=== PATIENT | female | born 1990 | race Two or more races ===

== ENCOUNTER 2017-01-09 13:22 | Emergency (ER) | payer OTHER ==
[2017-01-09 13:35] VITALS: BP 101/72; PULSE 85; TEMP 98; BMI 23.0
[2017-01-09] MEDS ORDERED: IBUPROFEN 400 MG TABLET (FP) PO ONE ×2 (14:27→14:56)
--- NOTE | 2017-01-09 14:30 | PDOC ---
History of Present Illness - General Chief Complaint: Pain Stated Complaint: RT FOOT PAIN, BACK PAIN Time Seen by Provider: 01/09/17 13:45 History Source: Patient - History of Present Illness Occurred: reports: other Pain Location: reports: back, lower extremity Method of Injury: Yes: fall Past History - Past Medical History Allergies/Adverse Reactions: Allergies Allergy/AdvReac Type Severity Reaction Status Date / Time No Known Allergies Allergy Verified 01/09/17 13:35 Home Medications: Ambulatory Orders Oxycodone HCl/Acetaminophen [Percocet 5/325 -] 1 - 2 tab PO Q4H #20 tablet 06/08 Penicillin V Potassium [Pen Vee K -] 500 mg PO QID #40 tablet 06/08/15 - Psycho/Social/Smoking Cessation Hx Suicidal Ideation: No Smoking History: Never smoked Information on smoking cessation initiated: No Review of Systems - Review of Systems Musculoskeletal: Yes: Back Pain, Joint Pain, Joint Swelling. No: Neck Pain Integumentary: No: Bruising *Physical Exam - Vital Signs Last Vital Signs Temp Pulse Resp BP Pulse Ox 98 F 85 18 101/72 100 01/09/17 13:32 01/09/17 13:32 01/09/17 13:32 01/09/17 13:32 01/09/17 13:32 - Physical Exam General Appearance: Yes: Appropriately Dressed. No: Apparent Distress HEENT: positive: Normal Voice Neck: positive: Supple Respiratory/Chest: negative: Respiratory Distress Musculoskeletal: positive: Normal Inspection, Vertebral Tenderness (minimal ttp to L mid back) Extremity: positive: Swelling (minimal swelling to lateral mal of R ankle) Integumentary: positive: Dry, Warm Neurologic: positive: Fully Oriented, Alert, Normal Mood/Affect ED Treatment Course - RADIOLOGY Radiology Studies Ordered: Category Date Time Status ANKLE & FOOT-RIGHT* [RAD] Stat Radiology 01/09/17 14:26 Ordered RIBS BILATERAL [RAD] Stat Radiology 01/09/17 14:26 Ordered Medical Decision Making - Medical Decision Making 01/09/17 14:27 26-year-old female, no significant history here with multiple injuries status post fall 5 days ago. States [place] the [place], she tripped and fell injuring her right foot and ankle and left mid back. States she has been able to ambulate but painful. Did not take anything for pain. Denies any other injuries at this time See exam M/l ankle/back sprain s/p fall 5 days ago -pain control in ED -XR 01/09/17 15:42 XRays neg for fx. Stable for dc w/ OBDULIA bandage and otc meds as needed for pain *DC/Admit/Observation/Transfer Diagnosis at time of Disposition: Ankle sprain Qualifiers: Encounter type: initial encounter Involved ligament of ankle: unspecified ligament Laterality: right Qualified Code(s): S93.401A - Sprain of unspecified ligament of right ankle, initial encounter - Discharge Dispostion Disposition: HOME Condition at time of disposition: Good - Patient Instructions Printed Discharge Instructions: Ankle Sprain Additional Instructions: Your xrays are normal. Please take motrin as needed for pain until symptoms resolve
== END 2017-01-09 16:21 | disposition home or self-care (01) ==
LOC: JERFT 13:22
DX: S93.401A Sprain of unspecified ligament of right ankle, initial encounter (principal); S23.3XXA Sprain of ligaments of thoracic spine, initial encounter; W18.39XA Other fall on same level, initial encounter; Y93.89 Activity, other specified; Y92.59 Other trade areas as the place of occurrence of the external cause; Y99.0 Civilian activity done for income or pay
CPT/HCPCS: 71111-TC; 73610-TC-RT; 73630-TC-RT; 84703; 99281-25

== ENCOUNTER 2017-08-11 23:43 | Emergency (ER) | payer OTHER ==
--- NOTE | 2017-08-12 00:49 | PDOC ---
History of Present Illness - General History Source: Patient Exam Limitations: No Limitations - History of Present Illness Initial Comments: 08/12/17 01:59 The patient is a 27 year old female, with no significant past medical history, who presents to the emergency department s/p mechanical fall. The patient reports falling when sleeping and hit her face on the floor and her bedside table. She reports the right side of her face to be swollen and painful. She denies recent fevers, chills, headache or dizziness. She denies recent nausea, vomit, diarrhea or constipation. She denies recent dysuria, frequency, urgency or hematuria. She denies recent chest pain or shortness of breath. Allergies: NKA Past surgical history: None reported. Social history: Nonsmoker. Denies EtOH use and recreational drug use. <Jerome Quarles - Last Filed: 08/12/17 02:01> <Bridget Hernández - Last Filed: 08/12/17 05:12> - General Chief Complaint: Injury Stated Complaint: FALL INJURY Time Seen by Provider: 08/12/17 00:48 Past History <Jerome Quarles - Last Filed: 08/12/17 02:01> - Suicide/Smoking/Psychosocial Hx Smoking History: Never smoked <Bridget Hernández - Last Filed: 08/12/17 05:12> - Past Medical History Allergies/Adverse Reactions: Allergies Allergy/AdvReac Type Severity Reaction Status Date / Time No Known Allergies Allergy Verified 08/12/17 00:49 Home Medications: Ambulatory Orders NK [No Known Home Medication] 08/12/17 Review of Systems - Review of Systems Able to Perform ROS?: Yes Comments:: 08/12/17 02:00 GENERAL/CONSTITUTIONAL: No fever or chills. No weakness. HEAD, EYES, EARS, NOSE AND THROAT: +Swelling to the right side of the face. No change in vision. No ear pain or discharge. No sore throat. CARDIOVASCULAR: No chest pain or shortness of breath. RESPIRATORY: No cough, wheezing, or hemoptysis. GASTROINTESTINAL: No nausea, vomiting, diarrhea or constipation. GENITOURINARY: No dysuria, frequency, or change in urination. MUSCULOSKELETAL: No joint or muscle swelling or pain. No neck or back pain. SKIN: No rash NEUROLOGIC: No headache, vertigo, loss of consciousness, or change in strength/ sensation. ENDOCRINE: No increased thirst. No abnormal weight change. HEMATOLOGIC/LYMPHATIC: No anemia, easy bleeding, or history of blood clots. ALLERGIC/IMMUNOLOGIC: No hives or skin allergy. All Other Systems: Reviewed and Negative <Jerome Quarles - Last Filed: 08/12/17 02:01> *Physical Exam - Vital Signs Last Vital Signs Temp Pulse Resp BP Pulse Ox 98.3 F 89 18 116/68 08/12/17 00:44 08/12/17 00:44 08/12/17 00:44 08/12/17 00:44 - Physical Exam Comments: 08/12/17 02:00 GENERAL: Awake, alert, and fully oriented, in no acute distress HEAD: No signs of trauma EYES: PERRLA, EOMI, sclera anicteric, conjunctiva clear ENT: Auricles normal inspection, hearing grossly normal, nares patent, oropharynx clear without exudates. Moist mucosa NECK: Normal ROM, supple, no lymphadenopathy, JVD, or masses LUNGS: Breath sounds equal, clear to auscultation bilaterally. No wheezes, and no crackles HEART: +Tachycardia. Regular rate, normal S1 and S2, no murmurs, rubs or gallops ABDOMEN: +Mildly tender to palpation in the epigastric region. Soft, normoactive bowel sounds. No guarding, no rebound. No masses EXTREMITIES: 2+ Distal pulses. Normal range of motion, no edema. No clubbing or cyanosis. No cords, erythema, or tenderness NEUROLOGICAL: +Reflexes 3/4 Brachioradialis and patellar. Cranial nerves II through XII grossly intact. Normal speech, normal gait SKIN: Warm, Dry, normal turgor, no rashes or lesions noted. <Jerome Quarles - Last Filed: 08/12/17 02:01> ED Treatment Course - LABORATORY CBC & Chemistry Diagram: 08/12/17 01:50 08/12/17 01:50 - ADDITIONAL ORDERS Additional order review: Laboratory Results 08/12/17 01:50 Sodium Cancelled Potassium Cancelled Chloride Cancelled Carbon Dioxide Cancelled Anion Gap Cancelled BUN Cancelled Creatinine Cancelled Creat Clearance w eGFR Cancelled Random Glucose Cancelled Calcium Cancelled Total Bilirubin Cancelled AST Cancelled ALT Cancelled Alkaline Phosphatase Cancelled Total Protein Cancelled Albumin Cancelled <Jerome Quarles - Last Filed: 08/12/17 02:01> - LABORATORY CBC & Chemistry Diagram: 08/12/17 01:50 08/12/17 01:50 <Bridget Hernández - Last Filed: 08/12/17 05:12> Medical Decision Making - Medical Decision Making 08/12/17 05:11 THIS IS A PRELIMINARY REPORT FROM [facility] DATE OF SERVICE: 2017-08-12 04:11:26 IMAGES: [id number] EXAM: CT MAXILLOFACIAL without contrast HISTORY: Fell out of bed COMPARISON: None. FINDINGS: Serial axial images of the facial bones are provided without priors. Coronal and sagittal reformats are provided. No contrast was given. The mandible is intact. The zygomatic arches are unremarkable. No orbital fracture is demonstrated. The nasal bone is intact. The medial and lateral pterygoid plates are intact. The bilateral osteomeatal complexes are patent. The bilateral orbital globes, extraocular muscles, and optic nerves are intact. The paranasal sinuses are without air-fluid level. Minimal mucosal thickening seen scattered in the sinuses.. The bilateral mastoid air cells are clear. IMPRESSION: NO ACUTE ABNORMALITY <Bridget Hernández - Last Filed: 08/12/17 05:12> *DC/Admit/Observation/Transfer - Attestations Scribe Attestion: 08/12/17 02:00 Documentation prepared by Jerome Quarles, acting as clinical medical assistant for Bridegt Hernández MD. <Jerome Quarles - Last Filed: 08/12/17 02:01> - Discharge Dispostion Admit: No <Bridget Hernández - Last Filed: 08/12/17 05:12> Diagnosis at time of Disposition: Facial injury, Fall - Discharge Dispostion Disposition: HOME Condition at time of disposition: Improved - Referrals Referrals: ON STAFF,NOT [Non Staff, Medical] - - Patient Instructions Printed Discharge Instructions: DI for Closed Head Injury - Post Discharge Activity
[2017-08-12 01:02] VITALS: BP 116/68; PULSE 89; TEMP 98.3; BMI 21.2
[2017-08-12 01:55] LABS: BASO % 0.4 % (0-2.0); EOS % 0.2 % (0-4.5); HEMATOCRIT 38.5 % (32.4-45.2); HEMOGLOBIN 12.7 GM/dL (10.7-15.3); LYMPH % 16.1 % (8-40); MCH 27.2 pg (25.7-33.7); MCHC 33.1 g/dl (32.0-36.0); MEAN CELL VOLUME 82.2 fl (80-96); MEAN PLT VOLUME 7.9 fl (7.5-11.1); MONO % 5.5 % (3.8-10.2); NEUT % 77.8 % (42.8-82.8); PLATELET COUNT 226 K/MM3 (134-434); RBC 4.68 M/mm3 (3.60-5.2); RDW 13.5 % (11.6-15.6); WHITE BLOOD COUNT 9.5 K/mm3 (4.0-10.0)
[2017-08-12 02:17] LABS: COCAINE, UR NEGATIVE ng/ml (CUTOFF=300); METHADONE, UR NEGATIVE ng/ml (CUTOFF=300); OPIATES, URI NEGATIVE ng/ml (CUTOFF=300); PHENCYCLIDINE,URINE NEGATIVE ng/ml (CUTOFF=25); URINE AMPHETAMINES NEGATIVE ng/ml (CUTOFF=500); URINE BARBITURATES NEGATIVE ng/ml (CUTOFF=200); URINE BENZODIAZEPINES NEGATIVE ng/ml (CUTOFF=200)
[2017-08-12 02:23] LABS: ALBUMIN 4.2 g/dl (3.4-5.0); ANION GAP 8 (8-16); BILIRUBIN,TOTAL 0.4 mg/dL (0.2-1.0); BLOOD UREA NITROGEN 12 mg/dL (7-18); CHLORIDE 107 mmol/L (98-107); CO2 27 mmol/L (21-32); CREATININE 0.7 mg/dL (0.55-1.02); GLUCOSE,RANDOM 98 mg/dL (74-106); POTASSIUM 3.8 mmol/L (3.5-5.1); SGOT/AST 16 U/L (15-37); SGPT/ALT 18 U/L (12-78); SODIUM 142 mmol/L (136-145); TOT PROT 7.8 g/dl (6.4-8.2)
[2017-08-12 02:24] LABS: ALK PHOS 73 U/L (45-117)
--- NOTE | 2017-08-12 12:10 | EKG ---
Test Reason : Blood Pressure : / mmHG Vent. Rate : 080 BPM Atrial Rate : 080 BPM P-R Int : 170 ms QRS Dur : 076 ms QT Int : 398 ms P-R-T Axes : 059 077 067 degrees QTc Int : 459 ms NORMAL SINUS RHYTHM NORMAL ECG NO PREVIOUS ECGS AVAILABLE Confirmed by MD JOSE LUIS, AYLEEN ([id number]) on 08/12/2017 12:09:32 PM Referred By: Confirmed By:AYLEEN AMAYA MD
== END 2017-08-12 05:20 | disposition home or self-care (01) ==
LOC: JER 23:43 → SUPCPDRO 23:43 → JER 08-12 05:20
DX: S09.8XXA Other specified injuries of head, initial encounter (principal); W06.XXXA Fall from bed, initial encounter; Y93.84 Activity, sleeping; Y92.032 Bedroom in apartment as the place of occurrence of the external cause; Y99.8 Other external cause status
CPT/HCPCS: 36415; 70450-TC; 70486-TC; 80053; 80307; 84436; 84443; 84479; 84703; 85025; 93005; 93010; 99282-25

== ENCOUNTER 2017-08-15 13:07 | Emergency (ER) | payer OTHER ==
[2017-08-15 13:37] VITALS: BP 110/77; PULSE 77; TEMP 98.1; BMI 20.9
[2017-08-15] MEDS ORDERED: KETOROLAC TROMETHAMINE 60 MG/2 ML VIAL IM ONE (14:58)
[2017-08-15] MEDS ORDERED: KETOROLAC TROMETHAMINE 60 MG/2 ML VIAL ONE (15:00)
--- NOTE | 2017-08-15 15:08 | PDOC ---
History of Present Illness - General Chief Complaint: Headache Stated Complaint: NECK PROBLEM, HEADACHE Time Seen by Provider: 08/15/17 14:47 History Source: Patient Exam Limitations: No Limitations - History of Present Illness Initial Comments: 08/15/17 15:00 27 yr female no medical history seen in ER 08/11/17 for falling out of her bed while sleeping hit head and face. Pt had no LOC negative cat scans. Pt returns to day c/o soreness to the back and her head, neg dizzyness neg vomiting. Pt has not taken and meds for pain since ER visit. Pt denies changes in vision, neg abdpain. Severity: Yes: moderate Past History - Past Medical History Allergies/Adverse Reactions: Allergies Allergy/AdvReac Type Severity Reaction Status Date / Time No Known Allergies Allergy Verified 08/15/17 13:34 Home Medications: Ambulatory Orders Cyclobenzaprine HCl [Flexeril -] 10 mg PO TID PRN #21 tablet 08/15/17 Naproxen [Naprosyn -] 500 mg PO BID PRN #14 tablet 08/15/17 COPD: No DVT: No - Immunization History Immunization Up to Date: Yes - Suicide/Smoking/Psychosocial Hx Smoking History: Never smoked Have you smoked in the past 12 months: No Information on smoking cessation initiated: No Hx Alcohol Use: No Drug/Substance Use Hx: No Substance Use Type: None Neuro Specific PMHX - Complaint Specific PMHX Glaucoma: No Herniated Disk: No Laminectomy: No Migraine: No Multiple Sclerosis: No Neuropathy: No TIA: No Review of Systems - Review of Systems Able to Perform ROS?: Yes Is the patient limited Niuean proficient: No Constitutional: No: Symptoms Reported HEENTM: No: Symptoms Reported Respiratory: No: Symptoms reported Cardiac (ROS): No: Symptoms Reported ABD/GI: No: Symptoms Reported : No: Symptoms Reported Musculoskeletal: Yes: Symptoms Reported Neurological: Yes: Symptoms reported, Headache *Physical Exam - Vital Signs Last Vital Signs Temp Pulse Resp BP Pulse Ox 98.1 F 77 16 110/77 100 08/15/17 13:34 08/15/17 13:34 08/15/17 13:34 08/15/17 13:34 08/15/17 13:34 - Physical Exam General Appearance: Yes: Nourished, Appropriately Dressed HEENT: positive: EOMI, JOSE, Pharynx Normal Neck: positive: Supple. negative: Tender Respiratory/Chest: positive: Lungs Clear, Normal Breath Sounds Cardiovascular: positive: Regular Rhythm, Regular Rate Gastrointestinal/Abdominal: positive: Normal Bowel Sounds, Soft Musculoskeletal: positive: Normal Inspection, Other (lumbar spine soft tissue paraspinal ttp , lateral neck with soft tissue ttp no midline tenderness). negative: Vertebral Tenderness Extremity: positive: Normal Capillary Refill, Normal Inspection, Normal Range of Motion Integumentary: positive: Normal Color, Dry, Warm Neurologic: positive: grocery store associate II-XII NML intact, Fully Oriented, Alert, Normal Mood/ Affect Medical Decision Making - Medical Decision Making 08/15/17 15:03 cc: headache soreness to low back, pain to her nose after she was sleeping and rolled out of her bed hitting face on night table on 08/11/17. pt had no LOC was seen in this ER negative head and facial ct scan pt has no dizzyness no changes in vision or vomiting no vetebral tenderness no midline vetebral tenderness will give toradol dc home with flexeril and naprosyn *DC/Admit/Observation/Transfer Diagnosis at time of Disposition: Muscle soreness Headache Qualifiers: Headache type: post-traumatic Headache chronicity pattern: acute headache Intractability: not intractable Qualified Code(s): G44.319 - Acute post- traumatic headache, not intractable - Discharge Dispostion Disposition: HOME Condition at time of disposition: Good - Prescriptions Prescriptions: Cyclobenzaprine HCl [Flexeril -] 10 mg PO TID PRN #21 tablet PRN Reason: Muscle Spasms Naproxen [Naprosyn -] 500 mg PO BID PRN #14 tablet PRN Reason: Pain - Referrals Referrals: Peggy Sim MD [Primary Care Provider] - - Patient Instructions Additional Instructions: drink at least 2 liters of water avoid texting reading or watching TV when you have headache or pain take the medication as prescribed follow with the neurologist Dr. Davey for follow up if headaches continue return to ER if symptoms have not improved after taking the prescribed medication - Post Discharge Activity
== END 2017-08-15 15:43 | disposition home or self-care (01) ==
LOC: JERFT 13:07
PROC: 3E0233Z Introduction of Anti-inflammatory into Muscle, Percutaneous Approach (ICD-10-PCS; principal; 2017-08-15)
DX: G44.319 Acute post-traumatic headache, not intractable (principal); M54.5 Low back pain; M79.1 Myalgia; W06.XXXD Fall from bed, subsequent encounter
CPT/HCPCS: 96372; 99281-25

== ENCOUNTER 2017-12-12 14:48 | Emergency (ER) | payer OTHER ==
[2017-12-12 14:53] VITALS: BMI 22.1
--- NOTE | 2017-12-12 14:55 | PDOC ---
Rapid Medical Evaluation Time Seen by Provider: 12/12/17 14:49 Medical Evaluation: Allergies Allergy/AdvReac Type Severity Reaction Status Date / Time No Known Allergies Allergy Verified 08/15/17 13:34 12/12/17 14:49 Pt. is a 27 y/o F 9 weeks who reports vaginal bleeding starting Monday. Was evaluated at [facility] on Monday and told she probably had a miscarriage. Transvaginal US done with an IUP approximately 8 weeks, however no heart rate. Beta HCG 4,500 at that time. Spotting the past 3 days. LMP 10/06/17 Exam: ambulatory, breathing easily Orders: CBC, Type and Screen, PT/INR, UA, UC, beta HCG Transvaginal. Pt. to proceed to main ED for further evaluation 12/12/17 14:58
[2017-12-12 15:57] LABS: BASO % 1.1 % (0-2.0); EOS % 1.7 % (0-4.5); HEMATOCRIT 40.5 % (32.4-45.2); HEMOGLOBIN 13.3 GM/dL (10.7-15.3); LYMPH % 24.1 % (8-40); MCH 27.6 pg (25.7-33.7); MCHC 32.9 g/dl (32.0-36.0); MEAN CELL VOLUME 83.9 fl (80-96); MEAN PLT VOLUME 8.2 fl (7.5-11.1); MONO % 7.4 % (3.8-10.2); NEUT % 65.7 % (42.8-82.8); PLATELET COUNT 227 K/MM3 (134-434); RBC 4.83 M/mm3 (3.60-5.2); RDW 13.9 % (11.6-15.6); WHITE BLOOD COUNT 8.2 K/mm3 (4.0-10.0)
[2017-12-12 16:08] LABS: INR 1.1 (0.82-1.09); PROTHROMBIN TIME (PATIENT) 12.4 SEC (9.7-13.0)
[2017-12-12] MEDS ORDERED: ACETAMINOPHEN 325 MG TABLET (FP) PO STA (16:59)
--- NOTE | 2017-12-12 17:00 | PDOC ---
History of Present Illness - General History Source: Patient Exam Limitations: No Limitations - History of Present Illness Initial Comments: 12/12/17 17:14 The patient is a 27 year old female , 9 weeks who presents to the ED with complaints of lower abdominal cramping and vaginal bleeding for two days. The patient states her pain and bleeding are both mild. She reports having a prior transvaginal ultrasound at 8 weeks which could not detect a heartbeat. States her LMP was in late September. She reports she has a follow up at her [employer] tomorrow. Denies any lightheadedness, shortness of breath, chest pain , cough, nausea, vomiting, diarrhea, or urinary symptoms. Allergies: Oxycodone [employer]: Lise Lieberman <Carolann Vázquez - Last Filed: 12/12/17 17:26> <Kassidy Damian - Last Filed: 12/12/17 20:43> - General Chief Complaint: Vaginal Bleeding Stated Complaint: BLEEDING (9 WKS ) Time Seen by Provider: 12/12/17 14:49 Past History <Carolann Vázquez - Last Filed: 12/12/17 17:26> - Past Medical History COPD: No DVT: No - Immunization History Immunization Up to Date: Yes - Suicide/Smoking/Psychosocial Hx Smoking History: Never smoked Have you smoked in the past 12 months: No Information on smoking cessation initiated: No Hx Alcohol Use: No Drug/Substance Use Hx: No Substance Use Type: None <Kassidy Damian - Last Filed: 12/12/17 20:43> - Past Medical History Allergies/Adverse Reactions: Allergies Allergy/AdvReac Type Severity Reaction Status Date / Time oxycodone Allergy Verified 12/12/17 14:49 Home Medications: Ambulatory Orders Cyclobenzaprine HCl [Flexeril -] 10 mg PO TID PRN #21 tablet 08/15/17 Naproxen [Naprosyn -] 500 mg PO BID PRN #14 tablet 08/15/17 Review of Systems - Review of Systems Able to Perform ROS?: Yes Comments:: 12/12/17 17:14 CONSTITUTIONAL: Absent: fever, chills, diaphoresis, generalized weakness, malaise, loss of appetite HEENT: Absent: rhinorrhea, nasal congestion, throat pain, throat swelling, difficulty swallowing, mouth swelling, ear pain, eye pain, visual Changes CARDIOVASCULAR: Absent: chest pain, syncope, palpitations, irregular heart rate, lightheadedness , peripheral edema RESPIRATORY: Absent: cough, shortness of breath, dyspnea with exertion, orthopnea, wheezing, stridor, hemoptysis GASTROINTESTINAL:(+) superpubic pain Absent: abdominal distension, nausea, vomiting, diarrhea, constipation, melena, hematochezia GENITOURINARY: (+) vaginal bleeding Absent: dysuria, frequency, urgency, hesitancy, hematuria, flank pain MUSCULOSKELETAL: Absent: myalgia, arthralgia, joint swelling SKIN: Absent: rash, itching, pallor HEMATOLOGIC/IMMUNOLOGIC: Absent: easy bleeding, easy bruising, lymphadenopathy, frequent infections ENDOCRINE: Absent: unexplained weight gain, unexplained weight loss, heat intolerance, cold intolerance NEUROLOGIC: Absent: headache, focal weakness or paresthesias, dizziness, unsteady gait, seizure, mental status changes, bladder or bowel incontinence PSYCHIATRIC: Absent: anxiety, depression, suicidal or homicidal ideation, hallucinations. All Other Systems: Reviewed and Negative <Carolann Vázquez - Last Filed: 12/12/17 17:26> *Physical Exam - Vital Signs Last Vital Signs Temp Pulse Resp BP Pulse Ox 98.6 F 88 18 138/75 100 12/12/17 14:51 12/12/17 14:51 12/12/17 14:51 12/12/17 14:51 12/12/17 14:51 - Physical Exam Comments: 12/12/17 17:15 GENERAL: Well developed, well nourished. Awake and alert. No acute distress. HEENT: Normocephalic, atraumatic. PERRLA, EOMI. No conjunctival pallor. Sclera are non- icteric. Moist mucous membranes. Oropharynx is clear. NECK: Supple. Full ROM. No JVD. Carotid pulses 2+ and symmetric, without bruits. No thyromegaly. No lymphadenopathy. CARDIOVASCULAR: Regular rate and rhythm. No murmurs, rubs, or gallops. Distal pulses are 2+ and symmetric. PULMONARY: No evidence of respiratory distress. Lungs clear to auscultation bilaterally. No wheezing, rales or rhonchi. ABDOMINAL: Soft. Non-tender. Non-distended. No rebound or guarding. No organomegaly. Normoactive bowel sounds. MUSCULOSKELETAL Normal range of motion at all joints. No bony deformities or tenderness. No CVA tenderness. EXTREMITIES: No cyanosis. No clubbing. No edema. No calf tenderness. SKIN: Warm and dry. Normal capillary refill. No rashes. No jaundice. NEUROLOGICAL: Alert, awake, appropriate. Cranial nerves 2-12 intact. Normal speech. Gait is normal without ataxia. PSYCHIATRIC: Cooperative. Good eye contact. Appropriate mood and affect. <Carolann Vázquez - Last Filed: 12/12/17 17:26> - Vital Signs Last Vital Signs Temp Pulse Resp BP Pulse Ox 98.6 F 88 18 138/75 100 12/12/17 14:51 12/12/17 14:51 12/12/17 14:51 12/12/17 14:51 12/12/17 14:51 <Kassidy Damian - Last Filed: 12/12/17 20:43> ED Treatment Course - LABORATORY CBC & Chemistry Diagram: 12/12/17 15:43 - ADDITIONAL ORDERS Additional order review: Laboratory Results 12/12/17 12/12/17 15:43 15:43 PT with INR 12.40 INR 1.10 Beta HCG, Quant 2525.3 12/12/17 15:43 RBC 4.83 MCV 83.9 MCHC 32.9 RDW 13.9 MPV 8.2 Neutrophils % 65.7 Lymphocytes % 24.1 D Monocytes % 7.4 Eosinophils % 1.7 D Basophils % 1.1 - RADIOLOGY Radiograph Interpretation: 12/12/17 17:26 Transvaginal ultrasound as reviewed by Dr. Armstrong reports findings consistent with demise of 7 weeks and 4 days gestational age. <Carolann Vázquez - Last Filed: 12/12/17 17:26> - LABORATORY CBC & Chemistry Diagram: 12/12/17 15:43 - ADDITIONAL ORDERS Additional order review: Laboratory Results 12/12/17 12/12/17 15:43 15:43 PT with INR 12.40 INR 1.10 Beta HCG, Quant 2525.3 12/12/17 15:43 RBC 4.83 MCV 83.9 MCHC 32.9 RDW 13.9 MPV 8.2 Neutrophils % 65.7 Lymphocytes % 24.1 D Monocytes % 7.4 Eosinophils % 1.7 D Basophils % 1.1 <Kassidy Damian - Last Filed: 12/12/17 20:43> Medical Decision Making - Medical Decision Making 12/12/17 17:25 GENERAL: Well-appearing, well-nourished. No apparent distress. HEENT: Normocephalic, atraumatic. PERRL, EOM intact. CARDIOVASCULAR: Normal S1, S2. Regular rate and rhythm. PULMONARY: Clear to auscultation bilaterally. ABDOMEN: Soft, non-distended, non-tender. PELVIC: states she has vaginal bleeding EXTREMITIES: Normal ROM in all four extremities. No gross deformities. SKIN: Warm, dry. No rash NEUROLOGICAL: No focal neurological deficits. <Carolann Vázquez - Last Filed: 12/12/17 17:26> - Medical Decision Making 12/12/17 18:09 27 yo female , has pelvic cramping w mild vag bleeding -she is followed at the clinic and has contract clerk automobile appt tomorrow US showed gestational sac with no heart tones at 7 weeks 4 days IMP demise 12/12/17 18:51 blood type O POS <Kassidy Damian - Last Filed: 12/12/17 20:43> *DC/Admit/Observation/Transfer - Attestations Scribe Attestion: 12/12/17 17:16 Documentation prepared by Carolann Vázquez, acting as chief medical technologist for Kassidy Damian MD. <Carolann Vázquez - Last Filed: 12/12/17 17:26> <Kassidy Damian - Last Filed: 12/12/17 20:43> Diagnosis at time of Disposition: Threatened - Discharge Dispostion Condition at time of disposition: Stable - Referrals Referrals: Peggy Sim MD [Primary Care Provider] - - Patient Instructions Printed Discharge Instructions: DI for Threatened Additional Instructions: please follow up with your air quality technician tomorrow - Post Discharge Activity
[2017-12-12] MEDS ORDERED: ACETAMINOPHEN 325 MG TABLET (FP) ONE (17:13)
[2017-12-12 17:38] LABS: URINE APPEARANCE CLEAR; URINE BILIRUBIN NEGATIVE (<2.0 mg/dL); URINE COLOR STRAW; URINE GLUCOSE (UA) NEGATIVE (NEGATIVE); URINE KETONE NEGATIVE (NEGATIVE); URINE LEUK ESTERASE NEGATIVE (NEGATIVE); URINE NITRITE NEGATIVE (NEGATIVE); URINE PROTEIN NEGATIVE (NEGATIVE); URINE UROBILINOGEN NEGATIVE mg/dL (0.2-1.0)
[2017-12-12 17:43] LABS: EPI CELLS RARE /HPF (FEW); URINE BACTERIA RARE /hpf (NONE SEEN)
[2017-12-12 19:21] VITALS: TEMP 98.1
[2017-12-12 19:34] VITALS: BP 115/74; PULSE 75
== END 2017-12-12 19:34 | disposition home or self-care (01) ==
LOC: JER 14:48
DX: O26.891 Other specified pregnancy related conditions, first trimester (principal); O02.1 Missed abortion; Z3A.09 9 weeks gestation of pregnancy
CPT/HCPCS: 36415; 76817-TC; 81003; 81015; 84702; 85025; 85610; 86850; 86900; 86901; 87086; 99283-25

== ENCOUNTER 2018-12-13 22:40 | Emergency (ER) | payer OTHER | END 2018-12-14 01:02 | disposition home or self-care (01) | LOC: JER 12-14 01:02 | DX: N30.01 Acute cystitis with hematuria (principal) ==

== ENCOUNTER 2025-01-20 22:36 | Emergency (ER) | payer OTHER ==
[2025-01-20 22:44] VITALS: BP 117/79; PULSE 82; RESP 16; TEMP 98.2; BMI 26.0
[2025-01-20] MEDS ORDERED: PHENAZOPYRIDINE HCL 100 MG TABLET (FP) ONE (22:55)
[2025-01-20] MEDS ORDERED: NITROFURANTOIN MONOHYD/M-CRYST 100 MG CAPSULE PO ONE (22:57)
[2025-01-20] MEDS: NITROFURANTOIN MACROCRYSTAL 50 MG CAPSULE (FP) PO SCH (22:58)
[2025-01-20] MEDS: PHENAZOPYRIDINE HCL 100 MG TABLET (FP) PO ONE (22:58)
== END 2025-01-20 23:02 | disposition home or self-care (01) ==
LOC: FER 22:36
DX: N30.00 Acute cystitis without hematuria (principal); R35.0 Frequency of micturition; R30.0 Dysuria; R68.83 Chills (without fever); M54.50 Low back pain, unspecified
CPT/HCPCS: 81003; 81015; 87086; 99283-25